=== PATIENT | male | born 1965 | race Caucasian/White ===

== ENCOUNTER → 2019-10-08 16:27 | Outpatient (BNVA) | payer BC, SELFPAY | PROVIDERS: Family Provider Nurse Practitioner; PCP Nurse Practitioner; Visit Provider Nurse Practitioner Family | DX: R53.83 Other fatigue (principal); M50.30 Other cervical disc degeneration, unspecified cervical region; M54.2 Cervicalgia; E55.9 Vitamin D deficiency, unspecified; E78.2 Mixed hyperlipidemia; M10.9 Gout, unspecified | CPT/HCPCS: 80053; 80061; 81001; 82306; 83036; 84443; 84550; 85025 ==

== ENCOUNTER → 2019-10-14 09:50 | Outpatient (BNVA) | payer BC, SELFPAY | PROVIDERS: Family Provider Nurse Practitioner; PCP Nurse Practitioner; Visit Provider Nurse Practitioner Family | DX: M54.2 Cervicalgia (principal); G89.29 Other chronic pain | CPT/HCPCS: 72050 ==

== ENCOUNTER 2019-11-04 06:00 | Outpatient (RCR) | payer BC, SELFPAY | END 2019-11-07 23:59 | disposition home or self-care (01) | LOC: SPT 06:00 | PROVIDERS: PCP Nurse Practitioner Family; Referring Provider Nurse Practitioner Family; Visit Provider Nurse Practitioner Family | DX: M50.30 Other cervical disc degeneration, unspecified cervical region (principal) | CPT/HCPCS: 97110; 97161 ==

== ENCOUNTER 2019-11-08 06:00 | Outpatient (RCR) | payer BC, SELFPAY | END 2019-12-08 23:59 | disposition home or self-care (01) | LOC: SPT 06:00 | PROVIDERS: PCP Nurse Practitioner Family; Referring Provider Nurse Practitioner Family; Visit Provider Nurse Practitioner Family | DX: M54.2 Cervicalgia (principal) | CPT/HCPCS: 97110; 97140 ==

== ENCOUNTER 2019-12-09 06:00 | Outpatient (RCR) | payer BC, SELFPAY | END 2020-01-07 23:59 | disposition home or self-care (01) | LOC: SPT 06:00 | PROVIDERS: PCP Nurse Practitioner Family; Referring Provider Nurse Practitioner Family; Visit Provider Nurse Practitioner Family | DX: M50.30 Other cervical disc degeneration, unspecified cervical region (principal) | CPT/HCPCS: 97110; 97140; 97164 ==

== ENCOUNTER 2020-02-15 19:47 | Emergency (ER) | payer BC, SELFPAY ==
[2020-02-15 20:00] VITALS: BP 151/69; PULSE 86; RESP 14; TEMP 36.4; O2SAT 97; BMI 28.8
--- NOTE | 2020-02-15 20:10 | XR_ITS ---
WS: [id number] XR hand RT min 3V* [id number] REASON FOR EXAM: INJURY FINDINGS: Complete dislocation of the distal phalanx in relation to the middle phalanx of the right index finge r. No definite associated fracture is identified. The distal phalanx is displaced laterally and poste riorly. XR/XR hand RT min 3V* [id number] IMPRESSION: Dislocation right middle finger as above.
--- NOTE | 2020-02-15 20:36 | W.ED.EXTPRO ---
Documented by User: KAYLYNN Narayan 02/15/20 22:50 HPI - Extremity Problem General: Chief complaint: Extremity Injury, Upper Stated complaint: poss broken finger Time Seen by Provider: 02/15/20 20:33 History of Present Illness: HPI Narrative: Patient is a 54-year-old male who comes to the ED with injury to third digit on right hand. Patient says injury occurred just prior to arrival. He was attaching a trailer hitch to vehicle and finger got jammed. Patient also has a small abrasion on third digit of right hand as well. He said his third digit had a visible deformity. Patient says he had his tetanus up-to-date and received a dose within the last 2 years. Associated symptoms: Deny chest pain, fever(s) or rash Review of Systems Const: Denies: fever(s), chills or fatigue Eyes: Denies: change in vision or eye discomfort ENMT: Denies: throat pain, odynophagia, nasal discharge or nasal congestion Card: Denies: chest pain, palpitations, edema, swelling of feet/ankles, dyspnea on exertion or orthopnea Resp: Denies: dyspnea, productive cough or non-productive cough GI: Denies: abdominal pain, nausea, vomiting, diarrhea, constipation or hematochezia : Denies: flank pain, difficulty urinating, dysuria or hematuria Musc: Reports: extremity pain (3rd digit of right hand) and deformity (visible deformity of distal phalanx of 3rd digit in right hand); Denies: neck pain, back pain or extremity swelling Skin/Breast: Reports: new lesions (Small abrasion on third digit.); Denies: rash Neuro: Denies: headache(s), numbness in extremities or weakness in extremities PFS ED PFSH: Medical History BPH (benign prostatic hyperplasia) DDD (degenerative disc disease), cervical Environmental and seasonal allergies Gout History of kidney stones Mixed hyperlipidemia Neck Pain Otitis media Sinusitis Vitamin D deficiency Social History Smoking and tobacco status: never smoked Second hand smoke exposure: No Smoking risk assessment/counseling performed?: No Alcohol intake: never Desire information about alcohol rehabilitation?: No Counseling given: No Desire information about substance/drug rehabilitation?: No Counseling given: No Physical Exam Const: COMMON NORMALS: no acute distress, patient oriented x3 and alert GENERAL APPEARANCE: cooperative and comfortable HENMT: COMMON NORMALS: normocephalic HEAD & SCALP: normocephalic MOUTH: Normal oral and palatal mucosa present THROAT: posterior oropharynx normal and uvula midline Neck/C-Spine: COMMON NORMALS: supple GENERAL: Yes normal visual inspection Resp: COMMON NORMALS: normal respiratory effort, No retractions, No use of accessory muscles and clear to auscultation bilaterally AUSCULTATION: clear to auscultation bilaterally Cardio: COMMON NORMALS: regular rate, regular rhythm, S1 normal heart sound present, S2 normal heart sound present, No gallops present (Cardio), No clicks present (Cardio), No murmurs present (Cardio) and Peripheral pulses 2+ throughout RATE: regular rate RHYTHM: regular rhythm HEART SOUNDS: S1 normal heart sound present and S2 normal heart sound present PERIPHERAL PULSES: Peripheral pulses 2+ throughout GI: COMMON NORMALS: Normal to inspection, nondistended, normoactive bowel sounds present, Soft to palpation, non-tender and no masses PALPATION: Yes Soft to palpation : COMMON NORMALS: Yes no CVA tenderness BLADDER/KIDNEY EXAM: Yes no CVA tenderness Back/Pelvis: COMMON NORMALS: no CVA tenderness Extremity: NARRATIVE EXTREMITY EXAM: Right hand?third digit had visible deformity. Tender to palpation around the DIP joint of third digit. Cap refill normal and sensation intact. Radial pulse 2+. No range of motion DIP joint of third digit. Neuro: COMMON NORMALS: patient oriented x3 and moves all extremities SENSORIUM/ORIENTATION: Yes alert Skin: TRAUMA: abrasion (Small abrasion on third digit.) Procedures Nerve Block Nerve Block 1: Time out performed: Yes Local Anesthetic: lidocaine 2% Amount of anesthesia used (mL): 10 Side: right Nerve Blocks: digital (3rd digit) Procedure Successful: Yes Patient Tolerated Procedure: well Complications: none Orthopedic Joint Reduction Joint #1: Time Out Performed: Yes Side: right Joint Reduction Location: finger (3rd digit--Distal phalanx dislocated) Analgesia: nerve block (digital block) Local Anesthesia: other anesthetic (Digital block) Amount of anesthesic used (mL): 10 Technique used: direct manipulation Post-reduction neuro exam: intact Post-reduction vascular: intact Post Reduction X-Ray Obtained: Yes Post Reduction X-Ray Results: reduced Splint Applied: Yes Patient Tolerated Procedure: well Additional Comments: After reduction DIP joint range of motion returned to normal. Course Vital Signs: Vital signs: Vital Signs Temperature 97.9 F 02/15/20 20:50 Pulse Rate 69 02/15/20 22:43 Respiratory Rate 14 02/15/20 20:00 Blood Pressure 156/53 02/15/20 20:50 Pulse Oximetry 98 02/15/20 22:43 MDM - Extremity (Nontraumatic) MDM Narrative: Medical decision making narrative: Patient is a 54-year-old male who comes in the ED with dislocated phalanx of the third digit on right hand. Patient also had small abrasion on third digit as well. X-ray of right hand showed third digit distal phalanx dislocation posteriorly with no fracture seen. Digital block was performed and distal phalanx was manipulated and reduced. Post right hand x-ray showed third digit distal phalanx reduced appropriately. Patient's finger was then placed in splint. Nurse also irrigated and cleaned abrasion and bandaged it. Case management order placed for Ortho referral. Patient told to leave finger in splint until seen by Ortho. He was sent home with a prescription for hydrocodone 5/325 mg 8 tabs and antibiotic for prophylactic treatment. Imaging Data^: Xray Ortho: Attestation: I personally reviewed and interpreted this imaging study as follows: My impression: Right hand x-ray?third digit distal phalanx dislocated posteriorly. No fracture seen. Post reduction hand x-ray performed?DIP joint on third digit was reduced and normal. Reduction was a success. Discharge Plan Discharge Patient Disposition: Home Clinical Impression: Dislocation, finger Qualifiers: Encounter type: initial encounter Qualified Code(s): S63.259A - Unspecified dislocation of unspecified finger, initial encounter Abrasion hand Qualifiers: Encounter type: initial encounter Laterality: right Qualified Code(s): S60.511A - Abrasion of right hand, initial encounter Condition: Stable Prescriptions: New sulfamethoxazole-trimethoprim 800-160 mg tablet 1 tab PO BID 5 Days Qty: 10 RF: 0 No Action lidocaine HCl [Xylocaine] 10 mg/mL (1 %) solution 1 ml IM ONCE Qty: 1 RF: 0 cephalexin [Keflex] 500 mg capsule 500 mg PO BID 10 Days Qty: 20 RF: 0 fluticasone propionate [Flonase Allergy Relief] 50 mcg/actuation spray,suspension 2 spray INTRANASAL DAILY 30 Days Qty: 16 RF: 0 ibuprofen 800 mg tablet 800 mg PO Q8H 30 Days Qty: 90 RF: 0 Discharge Orders: Discharge Order (Routine); Ordered 02/15/20 Ordered By: Otis Damon Referrals: NOEL Bettencourt, EMERGENCY PREPAREDNESS COORDINATOR [Primary Care Provider] - Discharge Diet: Regular Discharge Activity: Limit activity as instructed Patient Instructions: Dislocation - Finger Activity Restrictions/Additional Instructions: Follow-up with medical provider as directed. Case management will contact you to set up an appointment with orthopedic in a couple days. Take medications as prescribed. Return to the ER or your medical provider if condition worsens. Please read and understand discharge instructions. If any questions, please ask. Discharge Date/Time: 02/15/20 22:46 Coding Level of Care Code ED [employer] Server for Chg Fwd Exam Comprehensive Documented by User: Bayron Lerma DO 02/16/20 00:26 HPI - Extremity Problem General: Chief complaint: Extremity Injury, Upper Stated complaint: poss broken finger Time Seen by Provider: 02/15/20 20:33 PFSH ED PFSH: Medical History BPH (benign prostatic hyperplasia) DDD (degenerative disc disease), cervical Environmental and seasonal allergies Gout History of kidney stones Mixed hyperlipidemia Neck Pain Otitis media Sinusitis Vitamin D deficiency Social History Smoking and tobacco status: never smoked Second hand smoke exposure: No Smoking risk assessment/counseling performed?: No Alcohol intake: never Desire information about alcohol rehabilitation?: No Counseling given: No Desire information about substance/drug rehabilitation?: No Counseling given: No Course Vital Signs: Vital signs: Vital Signs Temperature 97.9 F 02/15/20 20:50 Pulse Rate 69 02/15/20 22:43 Respiratory Rate 14 02/15/20 20:00 Blood Pressure 156/53 02/15/20 20:50 Pulse Oximetry 98 02/15/20 22:43 MDM - Extremity (Nontraumatic) MDM Narrative: Medical decision making narrative: 54-year-old gentleman seen by Mr. FlorianKIP moore. I agree with his history, evaluation, and treatment. I saw the patient as well. Orthopedic joint reduction was attempted by Mr. Damon, and initially unsuccessful, I attempted unsuccessfully as well. Mr. Damon tried again, with successful reduction of the joint. The patient does likely have a middle phalanx fracture of the third digit that is intra-articular, but appears nondisplaced. He is placed in a splint, and will follow up with orthopedics. Discharge Plan Discharge Patient Disposition: Home Clinical Impression: Dislocation, finger Qualifiers: Encounter type: initial encounter Qualified Code(s): S63.259A - Unspecified dislocation of unspecified finger, initial encounter Abrasion hand Qualifiers: Encounter type: initial encounter Laterality: right Qualified Code(s): S60.511A - Abrasion of right hand, initial encounter Condition: Stable Prescriptions: New sulfamethoxazole-trimethoprim 800-160 mg tablet 1 tab PO BID 5 Days Qty: 10 RF: 0 No Action lidocaine HCl [Xylocaine] 10 mg/mL (1 %) solution 1 ml IM ONCE Qty: 1 RF: 0 cephalexin [Keflex] 500 mg capsule 500 mg PO BID 10 Days Qty: 20 RF: 0 fluticasone propionate [Flonase Allergy Relief] 50 mcg/actuation spray,suspension 2 spray INTRANASAL DAILY 30 Days Qty: 16 RF: 0 ibuprofen 800 mg tablet 800 mg PO Q8H 30 Days Qty: 90 RF: 0 Discharge Orders: Discharge Order (Routine); Ordered 02/15/20 Ordered By: Otis Damon Referrals: NOEL Bettencourt, EMERGENCY PREPAREDNESS COORDINATOR [Primary Care Provider] - Discharge Diet: Regular Discharge Activity: Limit activity as instructed Patient Instructions: Dislocation - Finger Activity Restrictions/Additional Instructions: Follow-up with medical provider as directed. Case management will contact you to set up an appointment with orthopedic in a couple days. Take medications as prescribed. Return to the ER or your medical provider if condition worsens. Please read and understand discharge instructions. If any questions, please ask. Discharge Date/Time: 02/15/20 22:46 Coding Level of Care Code ED [employer] for Chg Fwd Exam Comprehensive
[2020-02-15 20:50] VITALS: BP 156/53; PULSE 80; TEMP 36.6; O2SAT 97
[2020-02-15] MEDS: lidocaine 2% INJ 20 mL INJECTION (21:40)
--- NOTE | 2020-02-15 22:17 | XR_ITS ---
WS: [id number] XR hand RT 2V [id number] REASON FOR EXAM: after reduction FINDINGS: Post reduction the distal interphalangeal joint of the right middle finger has been restored to anato amira alignment. Again, no definite fracture identified. No radiopaque soft tissue foreign body. XR/XR hand RT 2V [id number] IMPRESSION: Orthodoxy of normal anatomic alignment of previous dislocation of the right m iddle finger as above.
[2020-02-15] MEDS: HYDROcodone-acetaminophen 7.5-325 mg Tablet 2 TAB PO (22:25)
[2020-02-15 22:43] VITALS: PULSE 69; O2SAT 98
--- NOTE | 2020-02-16 09:45 | DCPLANNER ---
aviation manager had message to schedule a follow up appointment for patient with ortho. aviation manager called the ortho clinic, spoke with Pat, gave clinic patients information. aviation manager was told that patients information would be printed and reviewed. Clinic will call patient with appointment information.
--- NOTE | 2020-02-19 15:47 | DCPLANNER ---
Patient has a follow up appointment scheduled for Tuesday, February 18, 2020 at 8:[address] Burt. Clinic will call patient with appointment information.
--- NOTE | 2020-03-23 12:18 | DCPLANNER ---
Patient had a follow up appointment scheduled for 02.24.20 with ortho - patient did attend appointment.
== END 2020-02-15 22:46 | disposition home or self-care (01) ==
PROVIDERS: Emergency Provider Physician Assistant; PCP Nurse Practitioner Family
DX: S63.292A Dislocation of distal interphalangeal joint of right middle finger, initial encounter (principal); S60.511A Abrasion of right hand, initial encounter; E78.2 Mixed hyperlipidemia; W23.0XXA Caught, crushed, jammed, or pinched between moving objects, initial encounter
CPT/HCPCS: 12345; 26770; 73120; 73130; 99281; 99283

== ENCOUNTER → 2020-02-24 08:49 | Outpatient (BNVA) | payer BC, SELFPAY | PROVIDERS: PCP Nurse Practitioner Family; Referring Provider Physician Assistant; Visit Provider Orthopaedic Surgery | DX: M79.641 Pain in right hand (principal); M79.89 Other specified soft tissue disorders | CPT/HCPCS: 73140 ==

== ENCOUNTER → 2020-12-09 10:15 | Outpatient (BNVA) | payer OTHER, SELFPAY | PROVIDERS: PCP Nurse Practitioner Family; Visit Provider Nurse Practitioner Family | DX: J01.90 Acute sinusitis, unspecified (principal); J22 Unspecified acute lower respiratory infection; B96.89 Other specified bacterial agents as the cause of diseases classified elsewhere; R06.02 Shortness of breath; R25.2 Cramp and spasm; R53.83 Other fatigue; Z12.5 Encounter for screening for malignant neoplasm of prostate; E78.2 Mixed hyperlipidemia; Z79.899 Other long term (current) drug therapy; E55.9 Vitamin D deficiency, unspecified | CPT/HCPCS: 71046; 80053; 80061; 81003; 82306; 83036; 83735; 84443; 85025; G0103 ==

== ENCOUNTER → 2021-10-24 10:44 | Outpatient (BNVA) | payer OTHER, SELFPAY | PROVIDERS: PCP Nurse Practitioner Family; Referring Provider Nurse Practitioner; Visit Provider Podiatrist Foot & Ankle Surgery | DX: M19.072 Primary osteoarthritis, left ankle and foot (principal); M79.672 Pain in left foot | CPT/HCPCS: 73630 ==

== ENCOUNTER → 2021-11-16 13:43 | Outpatient (BNVA) | payer OTHER, SELFPAY | PROVIDERS: PCP Nurse Practitioner Family; Visit Provider Nurse Practitioner Family | DX: R05.9 Cough, unspecified (principal); K21.9 Gastro-esophageal reflux disease without esophagitis; J40 Bronchitis, not specified as acute or chronic | CPT/HCPCS: 71045 ==

== ENCOUNTER → 2021-11-21 09:42 | Outpatient (BNVA) | payer OTHER, SELFPAY | PROVIDERS: PCP Nurse Practitioner Family; Visit Provider Nurse Practitioner | DX: R05.9 Cough, unspecified (principal) | CPT/HCPCS: 87400; 87426 ==

== ENCOUNTER → 2021-12-21 15:05 | Outpatient (BNVA) | payer OTHER, SELFPAY | PROVIDERS: PCP Family Medicine; Visit Provider Podiatrist Foot & Ankle Surgery | DX: S90.32XA Contusion of left foot, initial encounter (principal); X58.XXXA Exposure to other specified factors, initial encounter; M72.2 Plantar fascial fibromatosis | CPT/HCPCS: 73630 ==

== ENCOUNTER → 2022-01-25 11:45 | Outpatient (BNVA) | payer OTHER, SELFPAY | PROVIDERS: PCP Family Medicine; Visit Provider Nurse Practitioner Family | DX: M70.20 Olecranon bursitis, unspecified elbow (principal) | CPT/HCPCS: 80503; 89051 ==

== ENCOUNTER 2022-01-26 11:19 | Emergency (ER) | payer OTHER, SELFPAY ==
[2022-01-26 11:30] VITALS: BP 163/90; PULSE 70; RESP 15; TEMP 36.7; O2SAT 98
[2022-01-26 11:31] VITALS: BMI 26.9
--- NOTE | 2022-01-26 12:06 | DCPLANNER ---
Addendum entered by Valentina Patel 03/20/22 15:55: Patient had a follow up appointment scheduled with ortho - patient did attend appointment Original Note: veneer department manager was asked to schedule a follow up appointment for patient with ortho. veneer department manager called the ortho clinic, gave clinic patients information. A follow up appointment was scheduled for Monday, January 31, 2022 at 10:[address] Burt at ortho. veneer department manager gave the ER physician the appointment information, this will be added to patients discharge paperwork.
[2022-01-26 12:35] VITALS: BP 125/70; PULSE 71; RESP 16; TEMP 36.8; O2SAT 96
--- NOTE | 2022-01-26 23:19 | ED_ITS ---
HPI - Skin/Abscess/Foreign Bdy General: Chief complaint: Skin/Abscess/Foreign Body Stated complaint: left elbow injury Time Seen by Provider: 01/26/22 11:39 History of Present Illness: 56 yo male patient presents to ER stating he was told to come here because he has infected synovial fluid of left elbow. Pt states he had bursitits and had it drained a few weeks ago and has continued to hurt. pt had fluid drawn yesterday and was told to come to er. pt denies any fever. Associated symptoms: Deny chills, fever(s), nausea or vomiting Review of Systems Const: Denies: fever(s), chills, body aches, change in appetite, change in weight, fatigue, malaise or diaphoresis Eyes: Denies: change in vision, blurry vision, blind spots, photophobia, eye discomfort, eye discharge, eye redness, floaters or seeing flashes ENMT: Denies: throat pain, uvular edema, enlarged tonsils, odynophagia, hoarseness, mouth pain, swelling of lips/tongue, oral sores, bleeding gums, dental pain, dry mouth, ear or mastoid pain, ear discharge, change in hearing, tinnitus, disequilibrium, nasal discharge, nasal congestion, post nasal drip or sinus pain Card: Denies: chest pain, palpitations, irregular heart rhythm, edema, swelling of feet/ankles, lightheadedness, syncope, pre-syncope, dyspnea on exert ion, orthopnea, leg pain with exertion or acrocyanosis Resp: Denies: dyspnea, productive cough, non-productive cough, wheezing, stridor, pain on inspiration, change in phlegm color, hemoptysis or chest congestion GI: Denies: abdominal pain, nausea, vomiting, hematemesis, dysphagia, diarrhea, constipation, GI cramping, change in bowel habits or rectal pain : Denies: flank pain, dysuria, urinary frequency, urinary urgency, urinary hesitancy or hematuria Musc: Denies: neck pain, back pain, joint pain, joint swelling, joint redness, joint warmth or deformity Skin/Breast: Denies: rash, pruritus, erythema, sores, new lesions, changes in skin color or dry skin Neuro: Denies: headache(s), numbness in extremities, weakness in extremities, sensory changes, lack of coordination, difficulty walking, frequent falls, diz ziness, vertigo, confusion, behavioral changes, Slurred speech present, difficulty communicating thoughts or seizure-like activity Psych: Denies: anxiety, depression, suicidal ideation or homicidal ideation Endo: Denies: polyuria, polydipsia, tired all the time, cold intolerance, excessive sweating, flushing, hot flashes or heat intolerance David/Lymph: Denies: easy bruising, easy bleeding, petechiae, purpura, enlarged lymph nodes or tender lymph nodes All/Imm: Denies: urticaria, throat swelling, tongue swelling, facial swelling, acute wheezing or itchy eyes PFSH ED PFSH: Medical History Acute bacterial sinusitis Acute bacterial sinusitis BPH (benign prostatic hyperplasia) Constipation DDD (degenerative disc disease), cervical Environmental and seasonal allergies GERD (gastroesophageal reflux disease) Gout History of kidney stones Leg cramps Lower respiratory infection Medication management Mixed hyperlipidemia Neck Pain Otitis media Prostate cancer screening Shortness of breath Sinusitis Urinary frequency Vitamin D deficiency Social History Smoking and tobacco status: never smoked Second hand smoke exposure: No Smoking risk assessment/counseling performed?: No Alcohol intake: never Desire information about alcohol rehabilitation?: No Counseling given: No Desire information about substance/drug rehabilitation?: No Counseling given: No Physical Exam Const: COMMON NORMALS: no acute distress, average body habitus, patient oriented x3, no limitations, healthy appearing, alert and well nourished HENMT: THROAT: no uvular edema Neck/C-Spine: COMMON NORMALS: no JVD Resp: COMMON NORMALS: normal respiratory effort, No retractions, No use of accessory muscles, clear to auscultation bilaterally and percussion normal AUSCULTATION: clear to auscultation bilaterally PERCUSSION: percussion normal Cardio: COMMON NORMALS: no JVD, regular rate, regular rhythm, S1 normal heart sound present, S2 normal heart sound present, No gallops present (Cardio), No clicks present (Cardio), No murmurs present (Cardio), No rub (Cardio) and Peripheral pulses 2+ throughout RATE: regular rate RHYTHM: regular rhythm HEART SOUNDS: S1 normal heart sound present and S2 normal heart sound present PERIPHERAL PULSES: Peripheral pulses 2+ throughout Extremity: NARRATIVE EXTREMITY EXAM: patient has a swollen warm to touch left elbow. pt is NVI distally Neuro: COMMON NORMALS: patient oriented x3 SENSORIUM/ORIENTATION: Yes alert Course Vital Signs: Vital signs: Vital Signs Temperature 98.3 F 01/26/22 12:35 Pulse Rate 71 01/26/22 12:35 Respiratory Rate 16 01/26/22 12:35 Blood Pressure 125/70 01/26/22 12:35 Pulse Oximetry 96 01/26/22 12:35 Oxygen Delivery Me thod 01/26/22 12:35 MDM - Skin/Abscess/Foreign Bdy Medicial Decision Making Patient is well appearing non toxic and in no acute distress. 56 yo male patient presents to ER stating he was told to come here because he has infected synovial fluid of left elbow. Pt states he had bursitits and had it drained a few weeks ago and has continued to hurt. pt had fluid drawn yesterday and was told to come to er. pt denies any fever. I called and discussed this case and labs with Dr. Burt who advised me to start him on antibiotics and follow up with him on . Will start patient on clindamycin at this time. Discharge Plan Discharge Patient Disposition: Home Clinical Impression: Infected olecranon bursa Condition: Stable Prescriptions: New Cleocin HCl 300 mg capsule 300 mg PO Q8H 10 Days Qty: 30 0RF No Action albuterol sulfate [ProAir HFA] 90 mcg/actuation HFA aerosol inhaler 1 puff inhalation .q4-6 hours PRN (Reason: shortness of breath or wheezing) 30 Days Qty: 8.5 2RF cholecalciferol (vitamin D3) 1,250 mcg (50,000 unit) capsule 50,000 unit PO DAILY Qty: 12 3RF Zyrtec 10 mg capsule 10 mg PO DAILY PRN ibuprofen 800 mg tablet 800 mg PO TID PRN (Reason: pain) Qty: 30 1RF prednisone 20 mg tablet 20 mg PO BID 5 Days Qty: 10 0RF triamcinolone acetonide [Kenalog] 40 mg/mL suspension 40 mg intrasynovial ONCE Qty: 1 0RF lidocaine (PF) 10 mg/mL (1 %) solution 10 mg SUBCUT ONCE Qty: 1 0RF ciprofloxacin HCl [Cipro] 500 mg tablet 500 mg PO BID 7 Days Qty: 14 0RF Discharge Orders: Discharge ED (Routine); Ordered 01/26/22 Ordered By: Olamide Dang Referrals: Biju Ramirez MD [Primary Care Provider] - Discharge Diet: Advance as tolerated Discharge Activity: Increase activity as tolerated Patient Instructions: Opioid Safety, Pain Management Activity Restrictions/Additional Instructions: Please See Dr. Burt on SundayJanuary 31 at 1030 AM Take antibiotics as prescribed Pleas return to ER with any worsening of symptoms Coding Level of Care Code ED District Resource Officer for Adriano Salas
== END 2022-01-26 13:20 | disposition home or self-care (01) ==
PROVIDERS: Emergency Provider Registered Nurse; PCP Family Medicine
DX: M71.122 Other infective bursitis, left elbow (principal); E78.2 Mixed hyperlipidemia
CPT/HCPCS: 87070; 87077; 87184; 99283

== ENCOUNTER 2022-02-02 12:45 | Day surgery (SDC) | payer OTHER, SELFPAY ==
[2022-02-01 17:25] VITALS: BMI 27.8
[2022-02-02] VITALS (7 sets, daily range): BP systolic 129–169; BP diastolic 76–98; PULSE 51–76; RESP 17–24; TEMP 36.3; O2SAT 94–100
[2022-02-02] MEDS: sodium chloride 0.9% 1,000 ML 30 ML IV (13:16)
--- NOTE | 2022-02-02 13:24 | W.PM.OPSUD ---
Surgery/Procedure H&P Update DATE OF PROCEDURE: February 02, 2022 DATE H&P PERFORMED: 01/31/22 H&P UPDATE INFORMATION: I have reviewed H&P completed within last 30 days PREOP DIAGNOSIS: Infected left olecranon bursa PLANNED PROCEDURE: Operation Date: 02/02/22 14:30 Proposed Procedures p mass left olecranon bursa/ 10110,M71.129(Left) - Shivam Burt MD
--- NOTE | 2022-02-02 14:38 | ANES.PREANE2 ---
Pre-Anesthetic Assessment Height/Weight: Height 1.75 m Weight 85.729 kg Temp Pulse Resp BP Pulse Ox O2 Del Method 97.3 F L 59 L 18 163/87 99 02/02/22 13:06 02/02/22 13:06 02/02/22 13:06 02/02/22 13:06 02/02/22 13:06 02/02/22 13:13 Preop Diagnosis: Infected left olecranon bursa Operation Date: 02/02/22 14:30 Proposed Procedures p mass left olecranon bursa/ [id number],M71.129(Left) - Shivam Burt MD Familial anesthetic complications: none Was Beta Herb taken within 24 hours: N/A Was Clonidine taken within 24 hours: N/A Last intake: Intake Last Liquid Date 02/01/22 Last Liquid Time 08:59 Last Solid Date 02/01/22 Last Solid Time 23:59 Social No alcohol and No tobacco Exam alert, oriented x 3, clear to auscultation bilaterally and regular rate & rhythm Airway Submandibular: within normal limits Cervical ROM: within normal limits Mallampati: Class II Dentition: chipped GI Gastroesophageal Reflux Disease [facility] Osteoarthritis/DJD Gout Anesthetic Plan ASA status: 2 Anesthesia: General Medications/Allergies Home Medications Medication Instructions Recorded Confirmed Last Taken Type clindamycin HCl 300 mg capsule 300 mg PO Q8H 02/01/22 02/02/22 02/01/22 History Allergies Allergy/AdvReac Type Severity Reaction Status Date / Time diphenhydramine Allergy Unknown unknown Verified 02/01/22 17:05 [From Benadryl] hydromorphone [From Dilaudid] Allergy Unknown unknown Verified 02/01/22 17:05 Opioids - Morphine Analogues Allergy Unknown unknown Verified 02/01/22 17:05 Penicillins Allergy unknown Verified 02/01/22 17:05 Current Medications Generic Name Dose Route Start Last Admin Trade Name Freq PRN Reason Stop Dose Admin Sodium Chloride 1,000 mls @ 30 mls/hr 02/02/22 13:15 02/02/22 13:16 Sodium Chloride 0.9% IV 02/03/22 13:14 30 mls/hr .Q24H CLAUDIO Administration PFSH Anesthesia Medical History Acute bacterial sinusitis Acute bacterial sinusitis BPH (benign prostatic hyperplasia) Constipation DDD (degenerative disc disease), cervical Environmental and seasonal allergies GERD (gastroesophageal reflux disease) Gout History of kidney stones Leg cramps Lower respiratory infection Medication management Mixed hyperlipidemia Neck Pain Otitis media Prostate cancer screening Shortness of breath Sinusitis Urinary frequency Vitamin D deficiency Social History Smoking and tobacco status: never smoked Second hand smoke exposure: No Smoking risk assessment/counseling performed?: No Alcohol intake: never Desire information about alcohol rehabilitation?: No Counseling given: No Desire information about substance/drug rehabilitation?: No Counseling given: No Data Anesthesia Cardiac Studies: No Data to Display
[2022-02-02] MEDS: ceFAZolin 2,000 MG in sodium chloride 0.9% (plus) 50 ML 100 MG IV (14:49)
--- NOTE | 2022-02-02 15:35 | PM.OP ---
Operative Report Date of procedure: February 02, 2022 Pre-op diagnosis: Preop Diagnosis Infected left olecranon bursa Post-op diagnosis: same Procedure done: Excision septic left olecranon bursa Pathology: Routine and anaerobic cultures of purulent material from bursa sent to micro Surgeon: Shivam Burt Anesthesia: General Estimated blood loss (mL): 5 Tourniquet time (min): 17 Findings: The patient had a well content purulent filled bursal sac approximately 2 x 2 cm in diameter overlying the olecranon. There was no noted bony extension Condition: stable Disposition: PACU Brief History: 56-year-old male with intermittent pain and swelling over his left olecranon particularly worse over the last 3 weeks. Initially treated with oral clindamycin with incomplete improvement. Here for excision of a septic olecranon bursa Procedure: The patient was taken to the operating room and given a general anesthesia he was prepped and draped in the supine position with a tourniquet on his left arm and the arm flexed over the body. A timeout was performed. 4 cm long contusional incision was made over the olecranon prominence. Dissection was carried down the skin where the bursa was entered producing a thick purulent fluid. Routine and anaerobic cultures were sent. Utilizing a scalpel and blunt scissors the bursal sac was then excised en bloc. As the clinical appearance was entirely consistent with septic bursitis it was not sent for pathology. The wound was very irrigated with saline. Deep tissues were closed with simple 2-0 Vicryl. Skin edges closed with vertical mattress 3 oh and simple 3-0 Prolene. Xeroflo gauze 4 x 4's compressive web roll and Pancho wrap were applied from wrist proximal arm. The patient was placed in the sling, extubated, and taken to recovery room in stable condition.
[2022-02-02] MEDS: HYDROcodone-acetaminophen 5-325 mg Tablet 1 TAB PO (16:25)
--- NOTE | 2022-02-03 07:40 | ANE.PACU2 ---
Inpatient post-anesthesia follow up: Airway intact: Yes Vital signs: Temperature 97.4 F Pulse Rate 75 Respiratory Rate 18 Blood Pressure 169/98 Pulse Oximetry 94 Oxygen Delivery Me thod Room Air Oxygen Flow Rate 6 Fraction of Inspir ed Oxygen Hydration adequate: Yes Nausea and vomiting: No Pain level: 2 Mental status: Baseline
== END 2022-02-02 17:05 | disposition home or self-care (01) ==
PROVIDERS: PCP Nurse Practitioner Family; Visit Provider Orthopaedic Surgery
PROC: (CPT 24105; principal; 2022-02-02 14:20)
DX: M71.122 Other infective bursitis, left elbow (principal); K21.9 Gastro-esophageal reflux disease without esophagitis; M19.90 Unspecified osteoarthritis, unspecified site; N40.0 Benign prostatic hyperplasia without lower urinary tract symptoms; E78.2 Mixed hyperlipidemia
CPT/HCPCS: 24105; 87070; 87075; 87077; 87186; 87205; J0690; J1100; J2405; J2704; J3010; J7030

== ENCOUNTER 2022-03-21 10:12 | Outpatient (CLI) | payer OTHER, SELFPAY ==
--- NOTE | 2022-03-21 11:02 | MR_ITS ---
WS: [id number] MRI LEFT FOOT without CONTRAST. COMPARISON: Radiograph 12/21/2021 Multiplanar, multisequence imaging is performed without contrast. MRI is centered over the hindfoot and midfoot due to location of pain. History: LEFT heel pain for 4 to 5 months. Moderate amount of marrow edema throughout the cuboid. Very slight interruption of the cortex and the trabecular pattern suggests this may be related to a nondisplaced fracture. There is a small amount of adjacent edema medial to the cuboid. No additional marrow edema and no fracture. The calcaneus is intact. There is increased T2 signal in the plantar ligaments, probably involving both the short and long ligaments. The Achilles tendon is normal. No significant plantar fasciitis. Anterior process of the calcaneus is normal. No subtalar edema. MR/MR foot LT wo con* [id number] IMPRESSION: 1. Marrow edema involving the cuboid. Changes in the trabecular pattern sugges ts this is probably related to a fracture with adjacent soft tissue edema. 2. Mild increased T2 signal in the plantar ligaments associated with the cuboi d. Probably representing mild sprain.
== END 2022-03-21 10:13 | disposition home or self-care (01) ==
LOC: RAD 10:13
PROVIDERS: PCP Nurse Practitioner Family; Visit Provider Podiatrist Foot & Ankle Surgery
DX: M79.672 Pain in left foot (principal); R60.0 Localized edema
CPT/HCPCS: 73718

== ENCOUNTER → 2022-09-21 15:51 | Outpatient (BNVA) | payer MEDICAID, SELFPAY | PROVIDERS: PCP Nurse Practitioner Family; Visit Provider Nurse Practitioner | DX: N39.0 Urinary tract infection, site not specified (principal) | CPT/HCPCS: 81000; 87086 ==

== ENCOUNTER → 2022-10-19 15:18 | Outpatient (BNVA) | payer MEDICAID, SELFPAY | PROVIDERS: PCP Nurse Practitioner Family; Visit Provider Nurse Practitioner | DX: M25.572 Pain in left ankle and joints of left foot (principal); M79.672 Pain in left foot | CPT/HCPCS: 73610; 73630 ==

== ENCOUNTER → 2023-02-09 14:01 | Outpatient (BNVA) | payer MEDICAID, SELFPAY | PROVIDERS: PCP Nurse Practitioner Family; Visit Provider Nurse Practitioner Family | DX: M19.012 Primary osteoarthritis, left shoulder (principal) | CPT/HCPCS: 73030 ==

== ENCOUNTER → 2023-03-12 16:58 | Outpatient (BNVA) | payer MEDICAID, SELFPAY | PROVIDERS: PCP Nurse Practitioner Family; Visit Provider Nurse Practitioner Family | DX: J22 Unspecified acute lower respiratory infection (principal) | CPT/HCPCS: 71046 ==

== ENCOUNTER → 2023-06-26 15:22 | Outpatient (BNVA) | payer BC, SELFPAY | PROVIDERS: PCP Nurse Practitioner Family; Referring Provider Nurse Practitioner Family; Visit Provider Student in an Organized Health Care Education/Training Program | DX: S46.912A Strain of unspecified muscle, fascia and tendon at shoulder and upper arm level, left arm, initial encounter (principal); M19.012 Primary osteoarthritis, left shoulder; M75.41 Impingement syndrome of right shoulder; M75.42 Impingement syndrome of left shoulder; X58.XXXA Exposure to other specified factors, initial encounter; M25.511 Pain in right shoulder; M25.512 Pain in left shoulder | CPT/HCPCS: 73030; 80053; 84550; 85025; 85651; 86200; 86225; 86235; 86431 ==

== ENCOUNTER → 2023-07-30 14:50 | Outpatient (BNVA) | payer BC, SELFPAY | PROVIDERS: PCP Nurse Practitioner Family; Visit Provider Nurse Practitioner Family | DX: Z79.899 Other long term (current) drug therapy (principal); E78.2 Mixed hyperlipidemia; R53.83 Other fatigue | CPT/HCPCS: 80053; 80061; 81003; 83036; 84443; 85025 ==

== ENCOUNTER → 2023-08-07 15:55 | Outpatient (BNVA) | payer BC, SELFPAY | PROVIDERS: PCP Nurse Practitioner Family; Visit Provider Nurse Practitioner Family | DX: R25.2 Cramp and spasm (principal); W57.XXXA Bitten or stung by nonvenomous insect and other nonvenomous arthropods, initial encounter | CPT/HCPCS: 82550; 82552; 82553; 83550; 83735; 86160; 86618; 86666; 86668; 86757 ==

== ENCOUNTER → 2023-11-29 15:08 | Outpatient (BNVA) | payer BC, SELFPAY | PROVIDERS: PCP Nurse Practitioner Family; Visit Provider Nurse Practitioner Family | DX: E78.2 Mixed hyperlipidemia (principal); J34.89 Other specified disorders of nose and nasal sinuses | CPT/HCPCS: 80053; 80061; 83721; 87426 ==

== ENCOUNTER → 2024-01-17 10:13 | Outpatient (BNVA) | payer BC, SELFPAY | PROVIDERS: PCP Nurse Practitioner Family; Visit Provider Nurse Practitioner Family | DX: R05.9 Cough, unspecified (principal) | CPT/HCPCS: 87426 ==

== ENCOUNTER → 2024-04-15 14:30 | Outpatient (BNVA) | payer BC, SELFPAY | PROVIDERS: PCP Nurse Practitioner Family; Visit Provider Nurse Practitioner Family | DX: E78.1 Pure hyperglyceridemia (principal) | CPT/HCPCS: 80053; 80061 ==

== ENCOUNTER → 2025-02-23 09:21 | Outpatient (BNVA) | payer MEDICAID, SELFPAY | PROVIDERS: PCP Nurse Practitioner Family; Visit Provider Nurse Practitioner Family | DX: E78.2 Mixed hyperlipidemia (principal); E55.9 Vitamin D deficiency, unspecified; M10.9 Gout, unspecified; M25.511 Pain in right shoulder; M25.512 Pain in left shoulder; R26.2 Difficulty in walking, not elsewhere classified; Z79.899 Other long term (current) drug therapy | CPT/HCPCS: 80053; 80061; 81003; 82306; 83036; 83721; 84443; 84550; 85025; 85651; 86038; 86140; 86200; 86431; G0103 ==

== ENCOUNTER → 2025-03-13 14:23 | Outpatient (BNVA) | payer MEDICAID, SELFPAY | PROVIDERS: PCP Nurse Practitioner Family; Visit Provider Nurse Practitioner Family | DX: M54.2 Cervicalgia (principal); G89.29 Other chronic pain | CPT/HCPCS: 72052 ==

== ENCOUNTER 2025-04-06 13:56 | Outpatient (RCR) | payer MEDICAID, SELFPAY | END 2025-04-08 23:59 | disposition home or self-care (01) | LOC: WPT 13:56 | PROVIDERS: Visit Provider Family Medicine | DX: M54.2 Cervicalgia (principal); G89.29 Other chronic pain | CPT/HCPCS: 97161 ==